=== PATIENT | male | born 2000 | race African-American/Black ===

== ENCOUNTER 2021-02-04 16:19 | Emergency (ER) | payer OTHER ==
[2021-02-04] MEDS ORDERED: ACETAMINOPHEN 325 MG TABLET PO STA (16:31)
--- NOTE | 2021-02-04 16:34 | ED Physician Documentation ---
PD HPI HEAD INJURY - Stated complaint Stated Complaint: HEAD INJ - Chief complaint Chief Complaint: Trauma Hd/Nk - History obtained from History obtained from: Patient - Additional information Additional information: About an hour ago he stood up and hit his head on a metal part of a plane. Now complains of severe headache and nausea. No loss of consciousness. Review of Systems Constitutional: denies: Fever, Chills Nose: reports: Reviewed and negative Throat: reports: Reviewed and negative PD PAST MEDICAL HISTORY - Present Medications Home Medications: Ambulatory Orders Medication Instructions Recorded Confirmed No Known Home Medications 02/04/21 02/04/21 - Allergies Allergies/Adverse Reactions: Allergies Allergy/AdvReac Type Severity Reaction Status Date / Time No Known Drug Allergies Allergy Verified 02/04/21 16:23 PD ED PE NORMAL - Vitals Vital signs reviewed: Yes - General General: Alert and oriented X 3 - HEENT HEENT: PERRL, EOMI, Other (Tender over the lower mid forehead without deformity) - Neck Neck: Supple, no meningeal sign, No bony TTP - Neuro Neuro: Alert and oriented X 3 Eye Opening: Spontaneous Motor: Obeys Commands Verbal: Confused (Very slightly) GCS Score: 14 Results - Vitals Vitals: Vital Signs - 24 hr 02/04/21 16:23 Temperature 36.5 C Heart Rate 80 Respiratory 16 Rate Blood Pressure 160/78 H O2 Saturation 99 Oxygen O2 Source Room air PD MEDICAL DECISION MAKING - ED course ED course: This young man has head injury, with very mild confusion and a "severe headache. As such CT imaging was done and interpreted contemporaneously by me and without acute findings. The patient was counseled as to the diagnosis and need for follow-up. I counseled the patient with regard to signs and symptoms that would necessitate an urgent reevaluation in the emergency department. They understand they are welcome to return at any time if worse or if not improving as expected. This document was made in part using voice recognition software. While efforts are made to proofread this documents, sound alike and grammatical errors may occur. Departure - Departure Disposition: 01 Home, Self Care Clinical Impression: Concussion Qualifiers: Encounter type: initial encounter Loss of consciousness presence/duration: without LOC Qualified Code(s): S06.0X0A - Concussion without loss of consciousness, initial encounter Condition: Good Record reviewed to determine appropriate education?: Yes Instructions: ED Concussion Comments: Tylenol as needed for pain, return for new or worsening symptoms. Forms: Activity restrictions
--- NOTE | 2021-02-04 17:07 | CT Report ---
PROCEDURE: HEAD WO INDICATIONS: head injury TECHNIQUE: Noncontrast 4.5 mm thick angled axial sections acquired from the foramen magnum to the vertex. For r adiation dose reduction, the following was used: automated exposure control, adjustment of mA and/or kV according to patient size. COMPARISON: None. FINDINGS: Image quality: Excellent. CSF spaces: Basal cisterns are patent. No extra-axial fluid collections. Ventricles are normal in size and shape. Brain: No midline shift. No intracranial masses or hemorrhage. Bledsoe-white matter interface is norm al. Skull and face: Calvarium and visualized facial bones are intact, without suspicious lesions. Sinuses: Visualized sinuses and mastoids are clear. IMPRESSION: No trauma found. Reviewed by: Magdaleno Reed MD on 02/04/2021 5:06 PM PDT Approved by: Magdaleno Reed MD on 02/04/2021 5:06 PM PDT Station ID: [id number]
[2021-02-04 17:29] VITALS: BP 157/96
== END 2021-02-04 17:31 | disposition home or self-care (01) ==
LOC: ED 16:19
DX: S06.0X0A Concussion without loss of consciousness, initial encounter (principal); W22.8XXA Striking against or struck by other objects, initial encounter
CPT/HCPCS: 70450; 99282; 99284; A9270